=== PATIENT | female | born 1990 | race Caucasian/White ===

== ENCOUNTER 2024-05-08 11:30 | Inpatient (IN) | payer BC ==
[2024-05-12] MEDS ORDERED: PROPOFOL 0 ML ONE (08:24)
[2024-05-12] MEDS ORDERED: Rocuronium Bromide 10 MG/ML (10ML VIAL) ONE (08:25)
[2024-05-12] MEDS ORDERED: Lidocaine 1% PF 5 ML VIAL ONE (08:25)
[2024-05-12] MEDS ORDERED: Heparin 5,000 UNITS/ML VIAL ONE (09:25)
[2024-05-12] MEDS ORDERED: ePHEDrine Sulfate 50 MG/10 ML VIAL ONE (10:05)
[2024-05-12] MEDS ORDERED: SUGAMMADEX SODIUM 200 MG/2 ML VIAL ONE ×2 (10:21→12:48)
[2024-05-12] MEDS ORDERED: Propofol 500 MG/50 ML VIAL ONE (10:32)
[2024-05-12] MEDS ORDERED: Famotidine/PF 20 mg/2ml Vial ONE (10:34)
[2024-05-12] MEDS ORDERED: fentaNYL PF 100 MCG/2 ML SYRINGE ONE ×2 (10:36→13:22)
[2024-05-12] MEDS ORDERED: Bupivacaine 0.25% HCL 30 ML VIAL ONE (10:39)
[2024-05-12] MEDS ORDERED: EPINEPHrine 1 MG/ML VIAL ONE (10:39)
[2024-05-12] MEDS ORDERED: CEFAZOLIN 2 GM VIAL ONE (10:50)
[2024-05-12] MEDS ORDERED: Dexamethasone 20 MG/5 ML VIAL ONE (11:16)
[2024-05-12] MEDS ORDERED: PHENYLEPHRINE-NS 100 MCG/ML 10 ML SYRINGE ONE (12:20)
[2024-05-12] MEDS ORDERED: PROPOFOL 40 ML ONE (12:20)
[2024-05-12] MEDS ORDERED: Ondansetron PF 4 MG/2 ML Vial ONE ×2 (12:45→13:32)
[2024-05-12] MEDS ORDERED: fentaNYL 50 mcg/mL 1 mL Vial ONE ×2 (12:57→13:55)
[2024-05-12] MEDS ORDERED: Ondansetron PF 4 MG/2 ML Vial IVP PRN (13:14)
[2024-05-12] MEDS ORDERED: diphenhydrAMINE 50 MG/ML VIAL IVP PRN (13:14)
[2024-05-12] MEDS ORDERED: Dextrose 50% Abboject 50 ML SYRINGE SLOW IVP PRN (13:14)
[2024-05-12] MEDS ORDERED: Glucagon 1 MG/ML KIT IM PRN (13:14)
[2024-05-12] MEDS ORDERED: Promethazine HCl 25 MG/ML VIAL IM PRN (13:14)
[2024-05-12] MEDS ORDERED: Dextrose 5% in Water 1,000 ML IV PRN (13:14)
[2024-05-12] MEDS ORDERED: Ipratropium/Albuterol 3 ML NEB NEB PRN (13:14)
[2024-05-12] MEDS ORDERED: hydrALAZINE 20 MG/ML VIAL SLOW IVP PRN (13:14)
[2024-05-12] MEDS ORDERED: fentaNYL 50 mcg/mL 1 mL Vial SLOW IVP PRN (13:51)
[2024-05-12] MEDS: D5 1/2 NS w/20 mEq KCL 1,000 ML IV SCH (14:39)
[2024-05-12] MEDS: Acetaminophen 650 MG/20.3 ML UDCUP PO SCH (15:20)
[2024-05-12 16:38] VITALS: BMI 47.3
[2024-05-12] MEDS: oxyCODONE 5 MG TAB PO PRN (16:46)
[2024-05-12] MEDS: traMADol HCl 50 MG TAB PO PRN (21:58)
[2024-05-13 05:24] LABS: #Basophils Less than 0.03 10x3/uL (0.0-0.2); #Eosinophils Less than 0.03 10x3/uL (0.0-0.7); %Basophils 0.2 % (0.0-1.0); %Eosinophils 0.1 % (0.0-10.0); %Lymphocytes 11.8 % (21.0-51.0); %Monocytes 4.5 % (0.0-10.0); Hematocrit 37.6 % (36.0-47.0); Hemoglobin 12.5 g/dL (12.0-16.0); Mean Corpuscular HGB CONC 33.2 g/dL (32.0-36.0); Mean Corpuscular Hemoglobin 27.1 pg (27.0-31.0); Mean Corpuscular Volume 81.6 fL (78.0-98.0); Mean Platelet Volume 10.4 fL (7.4-10.4); Platelet Count 227 10x3/uL (130-400); RBC Distribution Width 14.7 % (11.5-14.5); Red Blood Cell (RBC) Count 4.61 mill/uL (4.20-5.40)
[2024-05-13 05:25] LABS: Anion Gap 10 mmol/L (10-20); BUN (Urea Nitrogen) 7 mg/dL (7.0-18.7); Calc. Creatinine Clearance 158 mL/min (70-130); Calcium 8.7 mg/dL (7.8-10.44); Carbon Dioxide 23 mmol/L (22-29); Chloride 108 mmol/L (98-107); Estimated GFR 82; Glucose 138 mg/dL (70-105); Potassium 4.2 mmol/L (3.5-5.1); Sodium 137 mmol/L (136-145)
[2024-05-13] MEDS: Enoxaparin 40 MG (0.4 mL) SYRINGE SC SCH (08:13)
[2024-05-13] MEDS: Pantoprazole 40 MG VIAL IVP SCH (08:13)
[2024-05-13 09:00] VITALS: BP 128/86; TEMP 97.3
== END 2024-05-13 11:51 | disposition home or self-care (01) | DRG 621 ==
LOC: EDSTATUS 13:00 → SURG A 05-12 06:49 → SURG B 05-12 14:34
PROVIDERS: ADMIT Surgery; ATTEND Surgery
PROC: 0D164ZA Bypass Stomach to Jejunum, Percutaneous Endoscopic Approach (ICD-10-PCS; principal; 2024-05-12)
PROC: 8E0W4CZ Robotic Assisted Procedure of Trunk Region, Percutaneous Endoscopic Approach (ICD-10-PCS; 2024-05-12)
DX: E66.01 Morbid (severe) obesity due to excess calories (principal); Z68.42 Body mass index [BMI] 45.0-49.9, adult; Z79.899 Other long term (current) drug therapy; F32.A Depression, unspecified; F41.9 Anxiety disorder, unspecified; Z91.040 Latex allergy status
CPT/HCPCS: 36415; 36416; 80048; 85025; J0171; J0665; J1100; J1644; J1650; J2405; J2470; J2704; J3010; J3480; J3490; S2900

== ENCOUNTER 2024-05-08 12:46 | Outpatient (CLI) | payer BC ==
[2024-05-08 13:52] LABS: #Basophils 0.06 10x3/uL (0.0-0.2); %Basophils 0.6 % (0.0-1.0); %Eosinophils 1.1 % (0.0-10.0); %Lymphocytes 25.2 % (21.0-51.0); %Monocytes 4.4 % (0.0-10.0); %Neutrophils 68.4 % (42.0-75.0); Hematocrit 41.6 % (36.0-47.0); Hemoglobin 13.5 g/dL (12.0-16.0); Mean Corpuscular HGB CONC 32.5 g/dL (32.0-36.0); Mean Corpuscular Hemoglobin 26.2 pg (27.0-31.0); Mean Corpuscular Volume 80.6 fL (78.0-98.0); Mean Platelet Volume 10.7 fL (7.4-10.4); Platelet Count 234 10x3/uL (130-400); RBC Distribution Width 14.7 % (11.5-14.5); Red Blood Cell (RBC) Count 5.16 mill/uL (4.20-5.40)
[2024-05-08 14:09] LABS: Hemoglobin A1c 5.1 % (4.0-6.0)
[2024-05-08 14:16] LABS: BHCG - Serum Negative (NEGATIVE); Pregs Control Background? CLEAR/WHITE (CLR/WHITE); Pregs Control Bar Appear? YES (CONTROL BAR)
[2024-05-08 14:20] LABS: ALT (SGPT) 86 U/L (8-55); AST (SGOT) 28 U/L (5-34); Albumin 3.9 g/dL (3.5-5.0); Alkaline Phosphatase 60 U/L (40-110); Anion Gap 14 mmol/L (10-20); BUN (Urea Nitrogen) 22 mg/dL (7.0-18.7); Bilirubin, Total 0.5 mg/dL (0.2-1.2); Calc. Creatinine Clearance 0 mL/min (70-130); Calcium 9.5 mg/dL (7.8-10.44); Carbon Dioxide 23 mmol/L (22-29); Chloride 104 mmol/L (98-107); Estimated GFR 85; Glucose 93 mg/dL (70-105); Potassium 3.8 mmol/L (3.5-5.1); Protein, Total 7.9 g/dL (6.0-8.3); Sodium 137 mmol/L (136-145)
== END 2024-05-08 12:47 | disposition home or self-care (01) ==
LOC: LABBT 12:46
PROVIDERS: ATTEND Surgery
DX: Z01.812 Encounter for preprocedural laboratory examination (principal); K21.9 Gastro-esophageal reflux disease without esophagitis; E66.01 Morbid (severe) obesity due to excess calories
CPT/HCPCS: 80053; 83036; 84703; 85025; 93005; 93010